=== PATIENT | male | born 1950 | race Caucasian/White ===

== ENCOUNTER 2017-08-12 00:42 | Inpatient (IN) | payer MEDICARE, OTHER ==
[~2017-08-12] VITALS: Ht 172.7 cm; Wt 151.0 kg
[~2017-08-12 00:42] MED LIST: ACET-1757 PO; AMLO2.5T2 PO; ASPI-496 PO; B CO PO; BISA10SU2 PO; CHOL-29 PO; CHOL100011 PO; DOCU100C33 PO; DOXY100C2 PO; ENAL2.5T PO; ENOX60SY4 SQ; ERGO500017 PO; FERR325T18 PO; FURO-93 PO; FURO40TA6 PO; GABA300C10 PO; GLYB1.252 PO; HEPA50004 SQ; HYDR12.53 PO; INSU100C5 SQ-INSULIN; INSU100V13 SQ; INSU100V8 SQ; LACT10SO28 PO; MAGN400T26 PO; METF10002 PO; METO25TA35 PO; METO25TA4 PO; MULT-257 PO; NICO-487; NYST1POW2 TP; OMEP20CA14 PO; OMEP20TA9 PO; POLY17PO5 PO; POTA10TA11 PO; SULF-169 PO; THIA50TA PO; TORS20TA2 PO; TRAM-47 PO; VITA1CAP7 PO; WARF5TAB PO
[2017-08-12] MEDS ORDERED: SODIUM CHLORIDE 0.9% 1,000 ML IV ONE (00:52)
[2017-08-12] MEDS ORDERED: SODIUM CHLORIDE FLUSH 10ML SYR IVF ONE (01:00)
[2017-08-12 01:52] LABS: BASOPHILS # (AUTO) 0.01 x10^3/uL (0-0.1); BASOPHILS % (AUTO) 0 % (0-1); EOSINOPHILS # (AUTO) 0.04 x10^3/uL (0-0.4); EOSINOPHILS % (AUTO) 0 % (1-7); LYMPHOCYTES # (AUTO) 0.76 x10^3/uL (1-3.4); LYMPHOCYTES % (AUTO) 6 % (22-44); MD NO; MEAN CORPUSCULAR HEMOGLOBIN 30.4 pg (27.5-34.5); MEAN CORPUSCULAR HGB CONC 33.7 g/dL (33.2-36.2); MEAN CORPUSCULAR VOLUME 90.4 fL (81-97); MEAN PLATELET VOLUME 7.1 fL (7.4-10.4); MONOCYTES # (AUTO) 0.53 x10^3/uL (0.2-0.8); MONOCYTES % (AUTO) 4 % (2-9); NEUTROPHILS # (AUTO) 11.03 x10^3/uL (1.8-6.8); NEUTROPHILS % (AUTO) 89 % (42-75); PLATELET COUNT 200 x10^3/uL (130-400); RED BLOOD COUNT 4.84 x10^6/uL (4.38-5.82); RED CELL DISTRIBUTION WIDTH 14.7 % (9.4-14.8)
[2017-08-12 01:56] LABS: INTERNATIONAL NORMALIZED RATIO 1.05 (0.93-1.1); PROTHROMBIN TIME 10.8 Seconds (9.6-11.5)
[2017-08-12 02:22] LABS: ALANINE AMINOTRANSFERASE 20 U/L (12-78); ANION GAP 8 mmol/L (5-15); CALCIUM 8.5 mg/dL (8.5-10.1); CHLORIDE 108 mmol/L (98-107); CREATININE 2.19 mg/dL (0.7-1.3)
[2017-08-12 02:27] LABS: ALKALINE PHOSPHATASE 84 U/L (45-117); BILIRUBIN,TOTAL 0.5 mg/dL (0.2-1.0); CREATINE KINASE, TOTAL 196 U/L (39-308); TOTAL PROTEIN 7.2 g/dL (6.4-8.2)
[2017-08-12] MEDS ORDERED: ASPIRIN 81 MG TABLET CHEW PO ONE (03:00)
[2017-08-12] MEDS ORDERED: ASPIRIN 81 MG TABLET CHEW ONE (03:15)
[2017-08-12] MEDS: SODIUM CHLORIDE 0.9% 1,000ML IVBOLUS ONE (03:19)
[2017-08-12] MEDS ORDERED: ONDANSETRON 2MG/ML, 2ML IVPush PRN (05:00)
[2017-08-12] MEDS ORDERED: ONDANSETRON ODT 4 MG PO PRN (05:00)
[2017-08-12] MEDS ORDERED: PROMETHAZINE 25 MG/ML, 1ML IM PRN (05:00)
[2017-08-12] MEDS ORDERED: ACETAMINOPHEN 325 MG TABLET PO PRN (05:00)
[2017-08-12] MEDS ORDERED: NITROGLYCERIN 0.4 MG/SPRAY SL PRN (05:30)
[2017-08-12] MEDS: ENOXAPARIN 100 MG/ML SQ SCH ×2 (05:30→17:25)
[2017-08-12] MEDS ORDERED: NITROGLYCERIN 0.4 MG BOTTLE (25 TABS) SL PRN (05:30)
[2017-08-12] MEDS: ENOXAPARIN 40 MG/0.4 ML SQ SCH ×2 (05:30→17:25)
[2017-08-12] MEDS ORDERED: ASPIRIN 325 MG TABLET EC PO SCH ×2 (06:00)
[2017-08-12] MEDS: SODIUM CHLORIDE 0.9% 1,000 ML IV SCH ×2 (06:41→21:58)
[2017-08-12 06:43] LABS: BASOPHILS # (AUTO) 0.02 x10^3/uL (0-0.1); BASOPHILS % (AUTO) 0 % (0-1); EOSINOPHILS # (AUTO) 0.05 x10^3/uL (0-0.4); EOSINOPHILS % (AUTO) 1 % (1-7); LYMPHOCYTES # (AUTO) 1.03 x10^3/uL (1-3.4); LYMPHOCYTES % (AUTO) 10 % (22-44); MD NO; MEAN CORPUSCULAR HEMOGLOBIN 30.5 pg (27.5-34.5); MEAN CORPUSCULAR HGB CONC 33.7 g/dL (33.2-36.2); MEAN CORPUSCULAR VOLUME 90.4 fL (81-97); MEAN PLATELET VOLUME 7.1 fL (7.4-10.4); MONOCYTES % (AUTO) 6 % (2-9); NEUTROPHILS # (AUTO) 8.62 x10^3/uL (1.8-6.8); NEUTROPHILS % (AUTO) 84 % (42-75); PLATELET COUNT 209 x10^3/uL (130-400); RED BLOOD COUNT 4.86 x10^6/uL (4.38-5.82); RED CELL DISTRIBUTION WIDTH 14.7 % (9.4-14.8)
[2017-08-12 06:50] VITALS: BP 150/80
[2017-08-12] MEDS: INSULIN DETEMIR 100 UNITS/ML, PEN SQ-INSULIN SCH ×2 (07:00→21:59)
[2017-08-12] MEDS: INSULIN ASPART 100 UNITS/ML, PEN SQ-INSULIN SCH ×4 (07:00→21:59)
[2017-08-12 07:04] LABS: TROPONIN I 0.343 ng/mL (0.000-0.045)
[2017-08-12 07:11] LABS: HEMOGLOBIN A1C 9.6 % (4.2-6.3)
[2017-08-12 07:20] LABS: HCT (SEDRATE) 43.9 % (39.2-51.8)
[2017-08-12] MEDS: FERROUS SULFATE 325 MG TABLET PO SCH ×3 (08:40→17:00)
[2017-08-12] MEDS: MAGNESIUM OXIDE 400 MG TABLET PO SCH ×2 (08:41→21:00)
[2017-08-12] MEDS: MULTIVITS,STRESS FORMULA 1 TABLET PO SCH (08:41)
[2017-08-12] MEDS: CHOLECALCIFEROL 1,000 UNIT TABLET PO SCH (08:41)
[2017-08-12] MEDS: METOPROLOL TARTRATE 25 MG TABLET PO SCH (08:41)
[2017-08-12] MEDS ORDERED: MULTIVITAMIN 1 TABLET PO SCH (09:00)
[2017-08-12] MEDS ORDERED: FUROSEMIDE 80 MG TABLET PO SCH (09:00)
[2017-08-12] MEDS: LISINOPRIL 5 MG TABLET PO SCH (09:00)
[2017-08-12 11:29] LABS: TROPONIN I 0.346 ng/mL (0.000-0.045)
[2017-08-12 19:22] VITALS: BP 130/79
[2017-08-12] MEDS: GABAPENTIN 300 MG CAPSULE PO SCH (21:00)
[2017-08-13] MEDS ORDERED: SODIUM CHLORIDE 0.9%, 250ML IVBOLUS ONE (01:00)
[2017-08-13 01:43] LABS: TROPONIN I 0.243 ng/mL (0.000-0.045)
[2017-08-13 02:22] LABS: MICROSCOPIC AUTO
[2017-08-13 02:24] LABS: CULTURE INDICATED? NO
[2017-08-13 04:14] VITALS: BP 149/82
[2017-08-13 04:46] LABS: CHLORIDE 109 mmol/L (98-107)
[2017-08-13 04:57] LABS: ALANINE AMINOTRANSFERASE 19 U/L (12-78); ALBUMIN 2.9 g/dL (3.4-5.0); ALKALINE PHOSPHATASE 77 U/L (45-117); ANION GAP 8 mmol/L (5-15); BILIRUBIN,TOTAL 0.6 mg/dL (0.2-1.0); CALCIUM 8.5 mg/dL (8.5-10.1); CHOL/HDL RATIO 3.9; CHOLESTEROL, TOTAL 162 mg/dL (140-239); CREATININE 2.01 mg/dL (0.7-1.3); HDL CHOL % 26 % (26-37); HDL CHOLESTEROL (DIRECT) 42 mg/dL (40-60); LDL CHOLESTEROL,CALCULATED 91 mg/dL (54-169); LDL/HDL RATIO 2.2 (0.5-3.0); TOTAL PROTEIN 6.9 g/dL (6.4-8.2); TRIGLYCERIDES 145 mg/dL (50-200); VLDL CHOLESTEROL 29 mg/dL (0-25)
[2017-08-13] MEDS ORDERED: ACETAMINOPHEN 650 MG SUPP PR PRN (06:00)
[2017-08-13] MEDS: SODIUM CHLORIDE 0.9% 1,000 ML IV SCH ×2 (06:06→16:04)
[2017-08-13] MEDS: ACETAMINOPHEN 325 MG TABLET PO PRN (06:07)
[2017-08-13 06:21] LABS: BASOPHILS # (AUTO) 0.02 x10^3/uL (0-0.1); BASOPHILS % (AUTO) 0 % (0-1); EOSINOPHILS # (AUTO) 0.07 x10^3/uL (0-0.4); EOSINOPHILS % (AUTO) 1 % (1-7); LYMPHOCYTES # (AUTO) 0.77 x10^3/uL (1-3.4); LYMPHOCYTES % (AUTO) 8 % (22-44); MD NO; MEAN CORPUSCULAR HEMOGLOBIN 30.8 pg (27.5-34.5); MEAN CORPUSCULAR HGB CONC 33.7 g/dL (33.2-36.2); MEAN CORPUSCULAR VOLUME 91.5 fL (81-97); MONOCYTES # (AUTO) 0.58 x10^3/uL (0.2-0.8); MONOCYTES % (AUTO) 6 % (2-9); NEUTROPHILS # (AUTO) 8.37 x10^3/uL (1.8-6.8); NEUTROPHILS % (AUTO) 85 % (42-75); PLATELET COUNT 223 x10^3/uL (130-400); RED BLOOD COUNT 4.83 x10^6/uL (4.38-5.82); RED CELL DISTRIBUTION WIDTH 14.9 % (9.4-14.8)
[2017-08-13] MEDS: INSULIN ASPART 100 UNITS/ML, PEN SQ-INSULIN SCH ×4 (06:29→20:49)
[2017-08-13 06:30] LABS: INTERNATIONAL NORMALIZED RATIO 1.07 (0.93-1.1)
[2017-08-13] MEDS ORDERED: ENALAPRILAT 1.25 MG/ML, 2ML IV PRN (08:30)
[2017-08-13] MEDS: INSULIN DETEMIR 100 UNITS/ML, PEN SQ-INSULIN SCH ×2 (09:39→20:49)
[2017-08-13] MEDS: METOPROLOL TARTRATE 25 MG TABLET PO SCH (09:40)
[2017-08-13] MEDS: MAGNESIUM OXIDE 400 MG TABLET PO SCH ×2 (09:40→20:42)
[2017-08-13] MEDS: FERROUS SULFATE 325 MG TABLET PO SCH ×3 (09:40→17:31)
[2017-08-13] MEDS: MULTIVITS,STRESS FORMULA 1 TABLET PO SCH (09:41)
[2017-08-13] MEDS: LISINOPRIL 5 MG TABLET PO SCH (09:41)
[2017-08-13] MEDS: CHOLECALCIFEROL 1,000 UNIT TABLET PO SCH (09:41)
[2017-08-13] MEDS: METOPROLOL 1 MG/ML, 5ML IVPush PRN (09:54)
[2017-08-13 20:32] VITALS: BP 135/69
[2017-08-13] MEDS: GABAPENTIN 300 MG CAPSULE PO SCH (20:43)
[2017-08-14] MEDS: SODIUM CHLORIDE 0.9% 1,000 ML IV SCH (01:40)
[2017-08-14 05:01] VITALS: BP 129/65
[2017-08-14 06:23] LABS: ANION GAP 7 mmol/L (5-15); CHLORIDE 113 mmol/L (98-107); CREATININE 2.07 mg/dL (0.7-1.3)
[2017-08-14] MEDS: INSULIN DETEMIR 100 UNITS/ML, PEN SQ-INSULIN SCH ×2 (06:24→19:54)
[2017-08-14 06:25] LABS: BASOPHILS # (AUTO) 0.01 x10^3/uL (0-0.1); BASOPHILS % (AUTO) 0 % (0-1); EOSINOPHILS # (AUTO) 0.13 x10^3/uL (0-0.4); EOSINOPHILS % (AUTO) 1 % (1-7); LYMPHOCYTES # (AUTO) 1.01 x10^3/uL (1-3.4); LYMPHOCYTES % (AUTO) 10 % (22-44); MD NO; MEAN CORPUSCULAR HEMOGLOBIN 30.4 pg (27.5-34.5); MEAN CORPUSCULAR HGB CONC 33.5 g/dL (33.2-36.2); MEAN CORPUSCULAR VOLUME 90.8 fL (81-97); MEAN PLATELET VOLUME 7.2 fL (7.4-10.4); MONOCYTES % (AUTO) 8 % (2-9); NEUTROPHILS # (AUTO) 8.09 x10^3/uL (1.8-6.8); NEUTROPHILS % (AUTO) 81 % (42-75); PLATELET COUNT 193 x10^3/uL (130-400); RED BLOOD COUNT 4.35 x10^6/uL (4.38-5.82); RED CELL DISTRIBUTION WIDTH 14.8 % (9.4-14.8)
[2017-08-14] MEDS ORDERED: TAMSULOSIN 0.4 MG CAP.ER.24H PO ONE (09:00)
[2017-08-14] MEDS: INSULIN ASPART 100 UNITS/ML, PEN SQ-INSULIN SCH ×4 (09:16→21:39)
[2017-08-14] MEDS: MULTIVITS,STRESS FORMULA 1 TABLET PO SCH (09:17)
[2017-08-14] MEDS: METOPROLOL TARTRATE 25 MG TABLET PO SCH ×2 (09:17→18:11)
[2017-08-14] MEDS: CHOLECALCIFEROL 1,000 UNIT TABLET PO SCH (09:17)
[2017-08-14] MEDS: LISINOPRIL 5 MG TABLET PO SCH (09:17)
[2017-08-14] MEDS: MAGNESIUM OXIDE 400 MG TABLET PO SCH ×2 (09:17→21:00)
[2017-08-14] MEDS: FERROUS SULFATE 220 MG/5 ML ORAL SOL PO SCH ×3 (09:22→17:00)
[2017-08-14] MEDS: GABAPENTIN 300 MG CAPSULE PO SCH (21:00)
[2017-08-15] MEDS: METOPROLOL 1 MG/ML, 5ML IVPush PRN (01:14)
[2017-08-15 04:00] VITALS: BP 156/92
[2017-08-15 04:40] LABS: BASOPHILS # (AUTO) 0.02 x10^3/uL (0-0.1); BASOPHILS % (AUTO) 0 % (0-1); EOSINOPHILS # (AUTO) 0.01 x10^3/uL (0-0.4); EOSINOPHILS % (AUTO) 0 % (1-7); LYMPHOCYTES # (AUTO) 0.47 x10^3/uL (1-3.4); LYMPHOCYTES % (AUTO) 4 % (22-44); MD NO; MEAN CORPUSCULAR HEMOGLOBIN 30.2 pg (27.5-34.5); MEAN CORPUSCULAR HGB CONC 33.1 g/dL (33.2-36.2); MEAN CORPUSCULAR VOLUME 91.3 fL (81-97); MEAN PLATELET VOLUME 7.5 fL (7.4-10.4); MONOCYTES # (AUTO) 0.83 x10^3/uL (0.2-0.8); MONOCYTES % (AUTO) 7 % (2-9); NEUTROPHILS # (AUTO) 11.43 x10^3/uL (1.8-6.8); NEUTROPHILS % (AUTO) 90 % (42-75); PLATELET COUNT 223 x10^3/uL (130-400); RED BLOOD COUNT 4.71 x10^6/uL (4.38-5.82); RED CELL DISTRIBUTION WIDTH 14.7 % (9.4-14.8)
[2017-08-15 04:45] LABS: ANION GAP 10 mmol/L (5-15); CHLORIDE 112 mmol/L (98-107); CREATININE 2.15 mg/dL (0.7-1.3)
[2017-08-15] MEDS ORDERED: SODIUM CHLORIDE 0.9% 1,000 ML IV SCH (04:51)
[2017-08-15] MEDS: METOPROLOL TARTRATE 25 MG TABLET PO SCH ×2 (06:44→17:23)
[2017-08-15] MEDS: INSULIN DETEMIR 100 UNITS/ML, PEN SQ-INSULIN SCH ×2 (07:23→17:22)
[2017-08-15] MEDS: FERROUS SULFATE 220 MG/5 ML ORAL SOL PO SCH ×3 (08:00→17:24)
[2017-08-15] MEDS: INSULIN ASPART 100 UNITS/ML, PEN SQ-INSULIN SCH ×4 (08:49→20:31)
[2017-08-15] MEDS ORDERED: MEROPENEM 500 MG in SODIUM CHLORIDE 0.9% 100 ML IV SCH (09:00)
[2017-08-15] MEDS: TAMSULOSIN 0.4 MG CAP.ER.24H PO SCH (09:00)
[2017-08-15] MEDS: MULTIVITS,STRESS FORMULA 1 TABLET PO SCH (15:25)
[2017-08-15] MEDS: LISINOPRIL 5 MG TABLET PO SCH (15:25)
[2017-08-15] MEDS: CHOLECALCIFEROL 1,000 UNIT TABLET PO SCH (15:25)
[2017-08-15] MEDS: MAGNESIUM OXIDE 400 MG TABLET PO SCH ×2 (15:26→20:33)
[2017-08-15] MEDS: ACETAMINOPHEN 325 MG TABLET PO PRN (17:14)
[2017-08-15] MEDS: GABAPENTIN 300 MG CAPSULE PO SCH (20:34)
[2017-08-15] MEDS: MEROPENEM 1 GM in SODIUM CHLORIDE 0.9% 100 ML IV SCH (21:31)
[2017-08-16] MEDS: INSULIN DETEMIR 100 UNITS/ML, PEN SQ-INSULIN SCH ×2 (04:01→17:08)
[2017-08-16] MEDS: INSULIN ASPART 100 UNITS/ML, PEN SQ-INSULIN SCH ×6 (04:04→23:31)
[2017-08-16 04:05] VITALS: BP 161/88
[2017-08-16 04:55] LABS: BASOPHILS # (AUTO) 0.02 x10^3/uL (0-0.1); BASOPHILS % (AUTO) 0 % (0-1); EOSINOPHILS % (AUTO) 0 % (1-7); LYMPHOCYTES # (AUTO) 0.77 x10^3/uL (1-3.4); LYMPHOCYTES % (AUTO) 5 % (22-44); MD NO; MEAN CORPUSCULAR HEMOGLOBIN 30.3 pg (27.5-34.5); MEAN CORPUSCULAR HGB CONC 32.8 g/dL (33.2-36.2); MEAN CORPUSCULAR VOLUME 92.4 fL (81-97); MEAN PLATELET VOLUME 8.3 fL (7.4-10.4); MONOCYTES # (AUTO) 0.91 x10^3/uL (0.2-0.8); MONOCYTES % (AUTO) 7 % (2-9); NEUTROPHILS # (AUTO) 12.46 x10^3/uL (1.8-6.8); NEUTROPHILS % (AUTO) 88 % (42-75); PLATELET COUNT 214 x10^3/uL (130-400); RED BLOOD COUNT 4.65 x10^6/uL (4.38-5.82); RED CELL DISTRIBUTION WIDTH 15.4 % (9.4-14.8)
[2017-08-16] MEDS: METOPROLOL TARTRATE 25 MG TABLET PO SCH ×2 (06:34→18:25)
[2017-08-16 07:20] LABS: ANION GAP 13 mmol/L (5-15); CALCIUM 8.6 mg/dL (8.5-10.1); CHLORIDE 113 mmol/L (98-107); CREATININE 3.59 mg/dL (0.7-1.3)
[2017-08-16] MEDS: MEROPENEM 1 GM in SODIUM CHLORIDE 0.9% 100 ML IV SCH (07:56)
[2017-08-16] MEDS: TAMSULOSIN 0.4 MG CAP.ER.24H PO SCH (07:58)
[2017-08-16] MEDS ORDERED: INSULIN DETEMIR 100 UNITS/ML, PEN SQ-INSULIN ONE (09:00)
[2017-08-16] MEDS: CHOLECALCIFEROL 1,000 UNIT TABLET PO SCH (09:12)
[2017-08-16] MEDS: FERROUS SULFATE 220 MG/5 ML ORAL SOL PO SCH ×3 (09:12→17:07)
[2017-08-16] MEDS: MULTIVITS,STRESS FORMULA 1 TABLET PO SCH (09:12)
[2017-08-16] MEDS: MAGNESIUM OXIDE 400 MG TABLET PO SCH ×2 (09:12→19:30)
[2017-08-16] MEDS ORDERED: FUROSEMIDE 40 MG/4 ML IV ONE (10:30)
[2017-08-16 11:06] LABS: CALCIUM 8.9 mg/dL (8.5-10.1)
[2017-08-16] MEDS: SODIUM BICARB 8.4%,50ML SYR. 75 MEQ in SODIUM CHLORIDE 0.45% 1,000 ML IV SCH (12:12)
[2017-08-16 12:38] LABS: POTASSIUM,URINE RANDOM 72 mmol/L; SODIUM,URINE RANDOM 22 mmol/L
[2017-08-16 12:43] LABS: CHLORIDE,URINE RANDOM < 10 mmol/L
[2017-08-16 12:49] LABS: MICROSCOPIC INDICATED
[2017-08-16 13:10] LABS: OSMOLALITY,URINE 551 mOsm/kg (500-850)
[2017-08-16] MEDS: BISACODYL 10 MG SUPP PR PRN (18:26)
[2017-08-16] MEDS: GABAPENTIN 300 MG CAPSULE PO SCH (19:30)
[2017-08-16] MEDS: MEROPENEM 500 MG in SODIUM CHLORIDE 0.9% 50 ML IV SCH (19:30)
[2017-08-16] MEDS ORDERED: MEROPENEM 500 MG in SODIUM CHLORIDE 0.9% 100 ML IV SCH (20:00)
[2017-08-17] MEDS: METOPROLOL 1 MG/ML, 5ML IVPush PRN ×4 (00:01→18:38)
[2017-08-17 04:00] VITALS: BP 161/97
[2017-08-17] MEDS: INSULIN DETEMIR 100 UNITS/ML, PEN SQ-INSULIN SCH ×2 (04:39→17:20)
[2017-08-17] MEDS: INSULIN ASPART 100 UNITS/ML, PEN SQ-INSULIN SCH ×5 (04:39→20:48)
[2017-08-17 04:40] LABS: CHLORIDE 118 mmol/L (98-107)
[2017-08-17 04:43] LABS: MEAN CORPUSCULAR HEMOGLOBIN 30.6 pg (27.5-34.5); MEAN CORPUSCULAR HGB CONC 33.6 g/dL (33.2-36.2); MEAN PLATELET VOLUME 8.5 fL (7.4-10.4); PLATELET COUNT 203 x10^3/uL (130-400); RED BLOOD COUNT 4.76 x10^6/uL (4.38-5.82); RED CELL DISTRIBUTION WIDTH 14.9 % (9.4-14.8)
[2017-08-17 04:45] LABS: ALANINE AMINOTRANSFERASE 365 U/L (12-78); ALBUMIN 2.7 g/dL (3.4-5.0); ALKALINE PHOSPHATASE 82 U/L (45-117); ANION GAP 9 mmol/L (5-15); BILIRUBIN,TOTAL 0.8 mg/dL (0.2-1.0); CALCIUM 8.5 mg/dL (8.5-10.1)
[2017-08-17] MEDS: METOPROLOL TARTRATE 25 MG TABLET PO SCH ×2 (05:10→17:20)
[2017-08-17 07:02] LABS: BASOPHILS # (AUTO) 0.04 x10^3/uL (0-0.1); BASOPHILS % (AUTO) 0 % (0-1); EOSINOPHILS # (AUTO) 0.08 x10^3/uL (0-0.4); EOSINOPHILS % (AUTO) 0 % (1-7); LYMPHOCYTES # (AUTO) 0.61 x10^3/uL (1-3.4); LYMPHOCYTES % (AUTO) 3 % (22-44); MD SCAN; MONOCYTES # (AUTO) 1.15 x10^3/uL (0.2-0.8); MONOCYTES % (AUTO) 6 % (2-9); NEUTROPHILS % (AUTO) 90 % (42-75)
[2017-08-17] MEDS: SODIUM BICARB 8.4%,50ML SYR. 75 MEQ in SODIUM CHLORIDE 0.45% 1,000 ML IV SCH (08:55)
[2017-08-17] MEDS: MEROPENEM 500 MG in SODIUM CHLORIDE 0.9% 50 ML IV SCH ×2 (08:59→20:42)
[2017-08-17] MEDS: MAGNESIUM OXIDE 400 MG TABLET PO SCH ×2 (08:59→20:42)
[2017-08-17] MEDS: TAMSULOSIN 0.4 MG CAP.ER.24H PO SCH (08:59)
[2017-08-17] MEDS: CHOLECALCIFEROL 1,000 UNIT TABLET PO SCH (08:59)
[2017-08-17] MEDS: FERROUS SULFATE 220 MG/5 ML ORAL SOL PO SCH ×3 (08:59→17:20)
[2017-08-17] MEDS ORDERED: FLUCONAZOLE 40 MG/ML ORAL SUSP NG SCH (09:00)
[2017-08-17] MEDS ORDERED: FLUCONAZOLE 10 MG/ML ORAL SUSP NG SCH (09:12)
[2017-08-17] MEDS: SODIUM CHLORIDE 0.45% 1,000 ML IV SCH ×2 (13:30→20:43)
[2017-08-17] MEDS: MULTIVITS,STRESS FORMULA 1 TABLET PO SCH (13:30)
[2017-08-17] MEDS: GABAPENTIN 300 MG CAPSULE PO SCH (20:42)
[2017-08-17] MEDS: hydrALAzine 20 MG/ML, 1ML IV PRN (21:34)
[2017-08-18] MEDS: INSULIN ASPART 100 UNITS/ML, PEN SQ-INSULIN SCH ×6 (00:04→20:19)
[2017-08-18 03:26] LABS: MEAN CORPUSCULAR HEMOGLOBIN 30.3 pg (27.5-34.5); MEAN CORPUSCULAR HGB CONC 32.9 g/dL (33.2-36.2); MEAN CORPUSCULAR VOLUME 92.1 fL (81-97); MEAN PLATELET VOLUME 8.1 fL (7.4-10.4); PLATELET COUNT 201 x10^3/uL (130-400); RED CELL DISTRIBUTION WIDTH 15.1 % (9.4-14.8)
[2017-08-18 03:34] LABS: ALANINE AMINOTRANSFERASE 668 U/L (12-78); ALBUMIN 2.3 g/dL (3.4-5.0); ANION GAP 9 mmol/L (5-15); CALCIUM 8.1 mg/dL (8.5-10.1); CHLORIDE 120 mmol/L (98-107); CREATININE 2.58 mg/dL (0.7-1.3)
[2017-08-18 03:37] LABS: ALKALINE PHOSPHATASE 89 U/L (45-117); BILIRUBIN,TOTAL 0.7 mg/dL (0.2-1.0); TOTAL PROTEIN 6.4 g/dL (6.4-8.2)
[2017-08-18 04:00] VITALS: BP 152/58
[2017-08-18 04:01] LABS: BASOPHILS # (AUTO) 0.01 x10^3/uL (0-0.1); BASOPHILS % (AUTO) 0 % (0-1); EOSINOPHILS # (AUTO) 0.16 x10^3/uL (0-0.4); EOSINOPHILS % (AUTO) 1 % (1-7); LYMPHOCYTES # (AUTO) 0.65 x10^3/uL (1-3.4); LYMPHOCYTES % (AUTO) 5 % (22-44); MD SCAN; MONOCYTES # (AUTO) 0.92 x10^3/uL (0.2-0.8); MONOCYTES % (AUTO) 8 % (2-9); NEUTROPHILS # (AUTO) 10.42 x10^3/uL (1.8-6.8); NEUTROPHILS % (AUTO) 86 % (42-75)
[2017-08-18] MEDS: INSULIN DETEMIR 100 UNITS/ML, PEN SQ-INSULIN SCH ×2 (05:08→16:20)
[2017-08-18] MEDS: METOPROLOL TARTRATE 25 MG TABLET PO SCH (05:54)
[2017-08-18] MEDS: DEXTROSE 5% 1,000 ML IV SCH ×2 (07:38→20:18)
[2017-08-18] MEDS: FLUCONAZOLE 40 MG/ML ORAL SUSP NG SCH (07:39)
[2017-08-18] MEDS: MEROPENEM 500 MG in SODIUM CHLORIDE 0.9% 50 ML IV SCH ×2 (07:39→20:18)
[2017-08-18] MEDS: FERROUS SULFATE 220 MG/5 ML ORAL SOL PO SCH ×3 (07:39→16:21)
[2017-08-18] MEDS: CHOLECALCIFEROL 1,000 UNIT TABLET PO SCH (07:40)
[2017-08-18] MEDS: MULTIVITS,STRESS FORMULA 1 TABLET PO SCH (07:40)
[2017-08-18] MEDS: TAMSULOSIN 0.4 MG CAP.ER.24H PO SCH (07:40)
[2017-08-18] MEDS: MAGNESIUM OXIDE 400 MG TABLET PO SCH ×2 (07:40→22:24)
[2017-08-18] MEDS: hydrALAzine 20 MG/ML, 1ML IV PRN ×2 (08:00→14:36)
[2017-08-18] MEDS: CARVEDILOL 12.5 MG TABLET PO SCH ×2 (10:47→16:21)
[2017-08-18] MEDS: SIMETHICONE 125 MG CHEW TAB PO SCH ×2 (11:00→22:24)
[2017-08-18] MEDS: GABAPENTIN 300 MG CAPSULE PO SCH (22:24)
[2017-08-19] MEDS: INSULIN ASPART 100 UNITS/ML, PEN SQ-INSULIN SCH ×6 (00:18→20:23)
[2017-08-19 04:00] VITALS: BP 135/55
[2017-08-19 04:09] LABS: BASOPHILS # (AUTO) 0.03 x10^3/uL (0-0.1); BASOPHILS % (AUTO) 0 % (0-1); EOSINOPHILS # (AUTO) 0.36 x10^3/uL (0-0.4); EOSINOPHILS % (AUTO) 3 % (1-7); LYMPHOCYTES # (AUTO) 0.74 x10^3/uL (1-3.4); LYMPHOCYTES % (AUTO) 7 % (22-44); MD NO; MEAN CORPUSCULAR HEMOGLOBIN 30.2 pg (27.5-34.5); MEAN CORPUSCULAR HGB CONC 32.9 g/dL (33.2-36.2); MEAN CORPUSCULAR VOLUME 91.8 fL (81-97); MEAN PLATELET VOLUME 8.2 fL (7.4-10.4); MONOCYTES # (AUTO) 0.84 x10^3/uL (0.2-0.8); MONOCYTES % (AUTO) 8 % (2-9); NEUTROPHILS # (AUTO) 8.95 x10^3/uL (1.8-6.8); NEUTROPHILS % (AUTO) 82 % (42-75); PLATELET COUNT 168 x10^3/uL (130-400); RED BLOOD COUNT 4.21 x10^6/uL (4.38-5.82); RED CELL DISTRIBUTION WIDTH 15.1 % (9.4-14.8)
[2017-08-19 04:20] LABS: ANION GAP 7 mmol/L (5-15); CALCIUM 7.9 mg/dL (8.5-10.1); CHLORIDE 118 mmol/L (98-107); CREATININE 2.23 mg/dL (0.7-1.3)
[2017-08-19] MEDS: CARVEDILOL 12.5 MG TABLET PO SCH ×2 (05:18→16:13)
[2017-08-19] MEDS: DEXTROSE 5% 1,000 ML IV SCH (05:18)
[2017-08-19] MEDS: INSULIN DETEMIR 100 UNITS/ML, PEN SQ-INSULIN SCH ×2 (05:18→16:08)
[2017-08-19] MEDS: MEROPENEM 500 MG in SODIUM CHLORIDE 0.9% 50 ML IV SCH ×2 (08:28→20:23)
[2017-08-19] MEDS: FLUCONAZOLE 40 MG/ML ORAL SUSP NG SCH (08:38)
[2017-08-19] MEDS: FERROUS SULFATE 220 MG/5 ML ORAL SOL PO SCH ×3 (08:38→16:12)
[2017-08-19] MEDS: MULTIVITS,STRESS FORMULA 1 TABLET PO SCH (08:39)
[2017-08-19] MEDS: MAGNESIUM OXIDE 400 MG TABLET PO SCH ×2 (08:39→21:41)
[2017-08-19] MEDS: CHOLECALCIFEROL 1,000 UNIT TABLET PO SCH (08:40)
[2017-08-19] MEDS: SIMETHICONE 125 MG CHEW TAB PO SCH ×2 (08:40→21:41)
[2017-08-19] MEDS: TAMSULOSIN 0.4 MG CAP.ER.24H PO SCH (08:41)
[2017-08-19 08:43] VITALS: BP 134/54
[2017-08-19 16:24] LABS: ANION GAP 6 mmol/L (5-15); CHLORIDE 118 mmol/L (98-107); CREATININE 2.16 mg/dL (0.7-1.3)
[2017-08-19] MEDS: GABAPENTIN 300 MG CAPSULE PO SCH (21:41)
[2017-08-20] MEDS: INSULIN ASPART 100 UNITS/ML, PEN SQ-INSULIN SCH ×6 (00:15→20:59)
[2017-08-20 04:00] VITALS: BP 136/52
[2017-08-20 04:58] LABS: BASOPHILS % (AUTO) 0 % (0-1); EOSINOPHILS # (AUTO) 0.33 x10^3/uL (0-0.4); EOSINOPHILS % (AUTO) 3 % (1-7); LYMPHOCYTES # (AUTO) 0.94 x10^3/uL (1-3.4); LYMPHOCYTES % (AUTO) 9 % (22-44); MD NO; MEAN CORPUSCULAR HEMOGLOBIN 30.2 pg (27.5-34.5); MEAN CORPUSCULAR HGB CONC 33.2 g/dL (33.2-36.2); MEAN CORPUSCULAR VOLUME 90.8 fL (81-97); MEAN PLATELET VOLUME 8.2 fL (7.4-10.4); MONOCYTES # (AUTO) 0.92 x10^3/uL (0.2-0.8); MONOCYTES % (AUTO) 9 % (2-9); NEUTROPHILS # (AUTO) 8.53 x10^3/uL (1.8-6.8); NEUTROPHILS % (AUTO) 80 % (42-75); PLATELET COUNT 175 x10^3/uL (130-400); RED BLOOD COUNT 4.42 x10^6/uL (4.38-5.82); RED CELL DISTRIBUTION WIDTH 15.2 % (9.4-14.8)
[2017-08-20 05:11] LABS: CHLORIDE 117 mmol/L (98-107)
[2017-08-20 05:16] LABS: ANION GAP 6 mmol/L (5-15); CALCIUM 7.8 mg/dL (8.5-10.1); CREATININE 2.12 mg/dL (0.7-1.3)
[2017-08-20] MEDS: CARVEDILOL 12.5 MG TABLET PO SCH ×2 (05:50→17:47)
[2017-08-20] MEDS: INSULIN DETEMIR 100 UNITS/ML, PEN SQ-INSULIN SCH ×2 (05:51→17:49)
[2017-08-20] MEDS: MEROPENEM 500 MG in SODIUM CHLORIDE 0.9% 50 ML IV SCH ×2 (07:34→20:59)
[2017-08-20] MEDS: FERROUS SULFATE 220 MG/5 ML ORAL SOL PO SCH ×3 (07:37→17:46)
[2017-08-20] MEDS: CHOLECALCIFEROL 1,000 UNIT TABLET PO SCH (07:37)
[2017-08-20] MEDS: FLUCONAZOLE 40 MG/ML ORAL SUSP NG SCH (07:37)
[2017-08-20] MEDS: SIMETHICONE 125 MG CHEW TAB PO SCH ×2 (07:37→21:00)
[2017-08-20] MEDS: MULTIVITS,STRESS FORMULA 1 TABLET PO SCH (07:38)
[2017-08-20] MEDS: MAGNESIUM OXIDE 400 MG TABLET PO SCH (09:00)
[2017-08-20] MEDS: TAMSULOSIN 0.4 MG CAP.ER.24H PO SCH (09:00)
[2017-08-20 13:00] VITALS: BP 138/76
[2017-08-20 19:21] VITALS: BP 134/70
[2017-08-20 20:00] VITALS: BP 130/70
[2017-08-20] MEDS: TERAZOSIN 2MG CAPSULE PO SCH (21:00)
[2017-08-20] MEDS: GABAPENTIN 300 MG CAPSULE PO SCH (21:00)
[2017-08-21] VITALS (7 sets, daily range): BP systolic 126–149; BP diastolic 61–77
[2017-08-21] MEDS: INSULIN ASPART 100 UNITS/ML, PEN SQ-INSULIN SCH ×6 (00:22→21:01)
[2017-08-21] MEDS: INSULIN DETEMIR 100 UNITS/ML, PEN SQ-INSULIN SCH ×2 (04:34→18:03)
[2017-08-21] MEDS: CARVEDILOL 12.5 MG TABLET PO SCH ×2 (04:35→18:00)
[2017-08-21 05:36] LABS: BASOPHILS # (AUTO) 0.04 x10^3/uL (0-0.1); BASOPHILS % (AUTO) 0 % (0-1); EOSINOPHILS # (AUTO) 0.19 x10^3/uL (0-0.4); EOSINOPHILS % (AUTO) 2 % (1-7); LYMPHOCYTES # (AUTO) 0.75 x10^3/uL (1-3.4); LYMPHOCYTES % (AUTO) 7 % (22-44); MD NO; MEAN CORPUSCULAR HEMOGLOBIN 30.1 pg (27.5-34.5); MEAN CORPUSCULAR HGB CONC 32.9 g/dL (33.2-36.2); MEAN CORPUSCULAR VOLUME 91.4 fL (81-97); MEAN PLATELET VOLUME 8.9 fL (7.4-10.4); MONOCYTES % (AUTO) 9 % (2-9); NEUTROPHILS # (AUTO) 9.18 x10^3/uL (1.8-6.8); NEUTROPHILS % (AUTO) 82 % (42-75); PLATELET COUNT 170 x10^3/uL (130-400); RED BLOOD COUNT 4.13 x10^6/uL (4.38-5.82); RED CELL DISTRIBUTION WIDTH 14.9 % (9.4-14.8)
[2017-08-21 05:41] LABS: ANION GAP 5 mmol/L (5-15); CALCIUM 7.9 mg/dL (8.5-10.1); CHLORIDE 116 mmol/L (98-107); CREATININE 2.01 mg/dL (0.7-1.3)
[2017-08-21] MEDS: MEROPENEM 500 MG in SODIUM CHLORIDE 0.9% 50 ML IV SCH ×2 (07:59→21:00)
[2017-08-21] MEDS: FERROUS SULFATE 220 MG/5 ML ORAL SOL PO SCH ×3 (08:00→16:56)
[2017-08-21] MEDS: MULTIVITS,STRESS FORMULA 1 TABLET PO SCH (10:03)
[2017-08-21] MEDS: CHOLECALCIFEROL 1,000 UNIT TABLET PO SCH (10:03)
[2017-08-21] MEDS: FLUCONAZOLE 40 MG/ML ORAL SUSP NG SCH (10:03)
[2017-08-21] MEDS: SIMETHICONE 125 MG CHEW TAB PO SCH ×2 (10:03→21:01)
[2017-08-21] MEDS: TERAZOSIN 2MG CAPSULE PO SCH (21:01)
[2017-08-21] MEDS: GABAPENTIN 300 MG CAPSULE PO SCH (21:01)
[2017-08-22] VITALS (9 sets, daily range): BP systolic 142–155; BP diastolic 72–81
[2017-08-22] MEDS: CARVEDILOL 12.5 MG TABLET PO SCH ×2 (04:09→17:15)
[2017-08-22] MEDS: INSULIN DETEMIR 100 UNITS/ML, PEN SQ-INSULIN SCH ×3 (04:10→17:14)
[2017-08-22] MEDS: INSULIN ASPART 100 UNITS/ML, PEN SQ-INSULIN SCH ×4 (04:10→20:40)
[2017-08-22] MEDS: FERROUS SULFATE 220 MG/5 ML ORAL SOL PO SCH ×3 (08:00→17:14)
[2017-08-22 08:23] LABS: ANION GAP 5 mmol/L (5-15); CALCIUM 8.3 mg/dL (8.5-10.1); CHLORIDE 117 mmol/L (98-107); CREATININE 2.01 mg/dL (0.7-1.3)
[2017-08-22] MEDS: CHOLECALCIFEROL 1,000 UNIT TABLET PO SCH (09:57)
[2017-08-22] MEDS: MULTIVITS,STRESS FORMULA 1 TABLET PO SCH (09:57)
[2017-08-22] MEDS: FLUCONAZOLE 40 MG/ML ORAL SUSP NG SCH (09:57)
[2017-08-22] MEDS: SIMETHICONE 125 MG CHEW TAB PO SCH ×2 (09:57→20:38)
[2017-08-22] MEDS ORDERED: FUROSEMIDE 40 MG/4 ML IV ONE (10:30)
[2017-08-22] MEDS: TERAZOSIN 2MG CAPSULE PO SCH (20:39)
[2017-08-22] MEDS: GABAPENTIN 300 MG CAPSULE PO SCH (20:39)
[2017-08-23 00:56] VITALS: BP 143/79
[2017-08-23] MEDS: INSULIN ASPART 100 UNITS/ML, PEN SQ-INSULIN SCH ×4 (03:52→20:32)
[2017-08-23] MEDS: CARVEDILOL 12.5 MG TABLET PO SCH ×2 (03:53→17:54)
[2017-08-23] MEDS: INSULIN DETEMIR 100 UNITS/ML, PEN SQ-INSULIN SCH ×2 (03:53→16:49)
[2017-08-23] MEDS: BISACODYL 10 MG SUPP PR PRN (06:01)
[2017-08-23 06:56] VITALS: BP 147/77
[2017-08-23 06:59] VITALS: BP 147/77
[2017-08-23 08:07] LABS: ANION GAP 7 mmol/L (5-15); CALCIUM 7.9 mg/dL (8.5-10.1); CHLORIDE 116 mmol/L (98-107)
[2017-08-23] MEDS: CHOLECALCIFEROL 1,000 UNIT TABLET PO SCH (08:49)
[2017-08-23] MEDS: FLUCONAZOLE 40 MG/ML ORAL SUSP NG SCH (08:50)
[2017-08-23] MEDS: FERROUS SULFATE 220 MG/5 ML ORAL SOL PO SCH ×3 (08:50→16:49)
[2017-08-23] MEDS: MULTIVITS,STRESS FORMULA 1 TABLET PO SCH (08:50)
[2017-08-23] MEDS: SIMETHICONE 80 MG CHEW TAB PO SCH ×2 (09:48→20:31)
[2017-08-23] MEDS: FUROSEMIDE 40 MG TABLET PO SCH (11:51)
[2017-08-23 12:30] VITALS: BP 117/63
[2017-08-23 19:36] VITALS: BP 123/66
[2017-08-23] MEDS: TERAZOSIN 2MG CAPSULE PO SCH (20:31)
[2017-08-23] MEDS: GABAPENTIN 300 MG CAPSULE PO SCH (20:31)
[2017-08-24 01:00] VITALS: BP 123/67
[2017-08-24] MEDS: INSULIN ASPART 100 UNITS/ML, PEN SQ-INSULIN SCH ×4 (03:48→21:19)
[2017-08-24] MEDS: INSULIN DETEMIR 100 UNITS/ML, PEN SQ-INSULIN SCH ×2 (05:24→17:25)
[2017-08-24] MEDS: CARVEDILOL 12.5 MG TABLET PO SCH ×2 (05:26→17:25)
[2017-08-24 06:50] VITALS: BP 137/75
[2017-08-24] MEDS: FERROUS SULFATE 220 MG/5 ML ORAL SOL PO SCH ×3 (09:05→17:25)
[2017-08-24] MEDS: FLUCONAZOLE 40 MG/ML ORAL SUSP NG SCH (09:05)
[2017-08-24] MEDS: SIMETHICONE 80 MG CHEW TAB PO SCH ×2 (09:06→21:15)
[2017-08-24] MEDS: FUROSEMIDE 40 MG TABLET PO SCH (09:06)
[2017-08-24] MEDS: CHOLECALCIFEROL 1,000 UNIT TABLET PO SCH (09:06)
[2017-08-24] MEDS: MULTIVITS,STRESS FORMULA 1 TABLET PO SCH (09:06)
[2017-08-24 09:58] LABS: ANION GAP 8 mmol/L (5-15); CALCIUM 7.8 mg/dL (8.5-10.1); CHLORIDE 115 mmol/L (98-107); CREATININE 1.82 mg/dL (0.7-1.3)
[2017-08-24 12:29] VITALS: BP 148/84
[2017-08-24 20:18] VITALS: BP 159/89
[2017-08-24] MEDS: TERAZOSIN 2MG CAPSULE PO SCH (21:16)
[2017-08-24] MEDS: GABAPENTIN 300 MG CAPSULE PO SCH (21:18)
[2017-08-25 01:18] VITALS: BP 151/84
[2017-08-25] MEDS: INSULIN ASPART 100 UNITS/ML, PEN SQ-INSULIN SCH ×4 (03:04→21:37)
[2017-08-25] MEDS: INSULIN DETEMIR 100 UNITS/ML, PEN SQ-INSULIN SCH ×2 (05:54→16:54)
[2017-08-25] MEDS: CARVEDILOL 12.5 MG TABLET PO SCH ×2 (05:55→16:54)
[2017-08-25 06:49] VITALS: BP 140/72
[2017-08-25] MEDS: CHOLECALCIFEROL 1,000 UNIT TABLET PO SCH (09:18)
[2017-08-25] MEDS: FLUCONAZOLE 40 MG/ML ORAL SUSP NG SCH (09:18)
[2017-08-25] MEDS: FUROSEMIDE 40 MG TABLET PO SCH (09:18)
[2017-08-25] MEDS: FERROUS SULFATE 220 MG/5 ML ORAL SOL PO SCH ×3 (09:19→16:54)
[2017-08-25] MEDS: SIMETHICONE 80 MG CHEW TAB PO SCH ×2 (09:19→21:37)
[2017-08-25] MEDS: MULTIVITS,STRESS FORMULA 1 TABLET PO SCH (09:19)
[2017-08-25 12:57] VITALS: BP 125/76
[2017-08-25 19:18] VITALS: BP 138/76
[2017-08-25] MEDS: TERAZOSIN 2MG CAPSULE PO SCH (21:36)
[2017-08-25] MEDS: GABAPENTIN 300 MG CAPSULE PO SCH (21:37)
[2017-08-26 02:59] VITALS: BP 126/62
[2017-08-26 02:59] LABS: BASOPHILS # (AUTO) 0.02 x10^3/uL (0-0.1); BASOPHILS % (AUTO) 0 % (0-1); EOSINOPHILS # (AUTO) 0.28 x10^3/uL (0-0.4); EOSINOPHILS % (AUTO) 3 % (1-7); LYMPHOCYTES # (AUTO) 0.77 x10^3/uL (1-3.4); LYMPHOCYTES % (AUTO) 7 % (22-44); MD NO; MEAN CORPUSCULAR HEMOGLOBIN 29.7 pg (27.5-34.5); MEAN CORPUSCULAR HGB CONC 33.1 g/dL (33.2-36.2); MEAN CORPUSCULAR VOLUME 89.9 fL (81-97); MEAN PLATELET VOLUME 8.3 fL (7.4-10.4); MONOCYTES # (AUTO) 0.75 x10^3/uL (0.2-0.8); MONOCYTES % (AUTO) 7 % (2-9); NEUTROPHILS # (AUTO) 9.01 x10^3/uL (1.8-6.8); NEUTROPHILS % (AUTO) 83 % (42-75); PLATELET COUNT 233 x10^3/uL (130-400); RED BLOOD COUNT 3.92 x10^6/uL (4.38-5.82); RED CELL DISTRIBUTION WIDTH 14.6 % (9.4-14.8)
[2017-08-26] MEDS: INSULIN ASPART 100 UNITS/ML, PEN SQ-INSULIN SCH ×2 (03:00→09:00)
[2017-08-26 04:08] LABS: ANION GAP 6 mmol/L (5-15); CHLORIDE 114 mmol/L (98-107); CREATININE 1.53 mg/dL (0.7-1.3)
[2017-08-26] MEDS: INSULIN DETEMIR 100 UNITS/ML, PEN SQ-INSULIN SCH (04:58)
[2017-08-26 05:14] LABS: OCCULT BLOOD POSITIVE (NEGATIVE)
[2017-08-26 05:51] VITALS: BP 125/72
[2017-08-26] MEDS: CARVEDILOL 12.5 MG TABLET PO SCH (05:52)
[2017-08-26 07:34] VITALS: BP 122/73
[2017-08-26] MEDS: FERROUS SULFATE 220 MG/5 ML ORAL SOL PO SCH ×2 (09:02→12:00)
[2017-08-26] MEDS: FLUCONAZOLE 40 MG/ML ORAL SUSP NG SCH (09:02)
[2017-08-26] MEDS: SIMETHICONE 80 MG CHEW TAB PO SCH (09:02)
[2017-08-26] MEDS: CHOLECALCIFEROL 1,000 UNIT TABLET PO SCH (09:02)
[2017-08-26] MEDS: FUROSEMIDE 40 MG TABLET PO SCH (09:03)
[2017-08-26] MEDS: MULTIVITS,STRESS FORMULA 1 TABLET PO SCH (09:03)
[2017-08-26] MEDS ORDERED: morphine SULFATE 125 MG in SODIUM CHLORIDE 0.9% 237.5 ML IV PRN (14:34)
[2017-08-26] MEDS ORDERED: SCOPOLAMINE PATCH, 1.5MG PATCH.TD72 TD SCH (15:00)
[2017-08-26] MEDS ORDERED: LORazepam 2 MG/ML, 1ML IVPush PRN (15:00)
[2017-08-26] MEDS ORDERED: ATROPINE OPHTH SOLN 1%, 5ML BC PRN (15:00)
[2017-08-26 15:40] VITALS: BP 124/76
[2017-08-27] MEDS ORDERED: morphine SULFATE ORAL.CONC 20 MG/ML BC PRN (17:30)
[2017-08-27] MEDS ORDERED: LORazepam INTENSOL 2 MG/ML BC PRN (17:30)
[2017-08-28 20:15] VITALS: BP 101/68
== END 2017-08-29 04:30 | disposition expired | DRG 64 ==
LOC: ED 02:50 → EDIP 02:55 → ED 03:14 → 5SO 04:34 → ICU 21:45 → CCU 08-14 14:20 → 4WST 08-20 12:23
PROVIDERS: ADMIT Surgery; ATTEND Internal Medicine
DX: I63.511 Cerebral infarction due to unspecified occlusion or stenosis of right middle cerebral artery (principal); J96.01 Acute respiratory failure with hypoxia; I21.4 Non-ST elevation (NSTEMI) myocardial infarction; I62.9 Nontraumatic intracranial hemorrhage, unspecified; G93.6 Cerebral edema; G93.41 Metabolic encephalopathy; I47.2 Ventricular tachycardia; N17.9 Acute kidney failure, unspecified; N18.4 Chronic kidney disease, stage 4 (severe); R13.10 Dysphagia, unspecified; E87.2 Acidosis; E87.0 Hyperosmolality and hypernatremia; G81.94 Hemiplegia, unspecified affecting left nondominant side; I13.0 Hypertensive heart and chronic kidney disease with heart failure and stage 1 through stage 4 chronic kidney disease, or unspecified chronic kidney disease; I50.42 Chronic combined systolic (congestive) and diastolic (congestive) heart failure; R41.4 Neurologic neglect syndrome; R65.10 Systemic inflammatory response syndrome (SIRS) of non-infectious origin without acute organ dysfunction; I27.29 Other secondary pulmonary hypertension; B37.9 Candidiasis, unspecified; E11.21 Type 2 diabetes mellitus with diabetic nephropathy; E11.42 Type 2 diabetes mellitus with diabetic polyneuropathy; D64.9 Anemia, unspecified; D72.829 Elevated white blood cell count, unspecified; E11.22 Type 2 diabetes mellitus with diabetic chronic kidney disease; E11.65 Type 2 diabetes mellitus with hyperglycemia; E78.5 Hyperlipidemia, unspecified; E87.5 Hyperkalemia; G47.30 Sleep apnea, unspecified; G93.89 Other specified disorders of brain; I25.10 Atherosclerotic heart disease of native coronary artery without angina pectoris; I34.0 Nonrheumatic mitral (valve) insufficiency; I35.8 Other nonrheumatic aortic valve disorders; I49.3 Ventricular premature depolarization; W07.XXXA Fall from chair, initial encounter; J44.9 Chronic obstructive pulmonary disease, unspecified; K21.9 Gastro-esophageal reflux disease without esophagitis; I27.81 Cor pulmonale (chronic); Z66 Do not resuscitate; N25.0 Renal osteodystrophy; I25.5 Ischemic cardiomyopathy; R29.810 Facial weakness; S91.301A Unspecified open wound, right foot, initial encounter; Z51.5 Encounter for palliative care; Z63.8 Other specified problems related to primary support group; Z79.82 Long term (current) use of aspirin; I25.2 Old myocardial infarction; Z87.891 Personal history of nicotine dependence; Z88.0 Allergy status to penicillin; Z95.1 Presence of aortocoronary bypass graft; Y93.89 Activity, other specified; Y92.098 Other place in other non-institutional residence as the place of occurrence of the external cause; Y99.8 Other external cause status; Z88.8 Allergy status to other drugs, medicaments and biological substances; Z91.018 Allergy to other foods; Z80.1 Family history of malignant neoplasm of trachea, bronchus and lung; Z80.0 Family history of malignant neoplasm of digestive organs; Z81.1 Family history of alcohol abuse and dependence; Z83.3 Family history of diabetes mellitus
CPT/HCPCS: 36415; 36600; 70450; 70551; 71010; 71045; 76770; 80048; 80053; 80061; 80307; 81001; 82040; 82140; 82272; 82306; 82310; 82436; 82550; 82553; 82570; 82728; 82803; 82947; 82962; 83036; 83540; 83550; 83735; 83880; 83935; 83970; 84100; 84133; 84156; 84300; 84443; 84484; 84550; 85014; 85018; 85025; 85610; 85651; 85730; 87040; 87070; 87077; 87081; 87186; 87205; 93005; 93880; 96360; 96361; C8929; J1650; J1815; J1940; J2185; J2270; J7070; G0479; J0360; J2060; J7030; J7050